=== PATIENT | male | born 1975 | race Caucasian/White ===

== ENCOUNTER 2019-01-26 10:18 | Emergency (ER) | payer OTHER, MEDICAID | END 2019-01-26 11:32 | disposition home or self-care (01) | LOC: E/R 10:18 → FTE 11:32 | DX: S89.92XA Unspecified injury of left lower leg, initial encounter (principal); W01.0XXA Fall on same level from slipping, tripping and stumbling without subsequent striking against object, initial encounter; Y92.9 Unspecified place or not applicable; Z87.891 Personal history of nicotine dependence | CPT/HCPCS: 29505; 99282-25 ==